=== PATIENT | female | born 1980 | race Two or more races ===

== ENCOUNTER 2024-12-04 17:33 | Emergency (ER) | payer OTHER ==
[~2024-12-04] VITALS: Ht 165.1 cm; Wt 108.9 kg
[2024-12-04] MEDS ORDERED: ACETAMINOPHEN ES 500 MG TABLET ONE (18:37)
[2024-12-04] MEDS ORDERED: IBUPROFEN 600 MG TABLET ONE (18:37)
[2024-12-04] MEDS: ACETAMINOPHEN ES 500 MG TABLET PO ONE (18:42)
[2024-12-04] MEDS: IBUPROFEN 600 MG TABLET PO ONE (18:43)
[2024-12-04] MEDS ORDERED: IBUP-1490 PO (19:55)
[2024-12-04 20:11] VITALS: BP 127/74; TEMP 98; O2SAT 100
== END 2024-12-04 20:12 | disposition home or self-care (01) ==
LOC: ER 17:37
DX: S16.1XXA Strain of muscle, fascia and tendon at neck level, initial encounter (principal); S80.02XA Contusion of left knee, initial encounter; M25.512 Pain in left shoulder; V43.52XA Car driver injured in collision with other type car in traffic accident, initial encounter; Y93.89 Activity, other specified; Y92.488 Other paved roadways as the place of occurrence of the external cause; Y99.8 Other external cause status
CPT/HCPCS: 72040-TC; 73030-TC; 73552; 73564-TC